=== PATIENT | female | born 1955 | race Caucasian/White ===

== ENCOUNTER 2020-10-22 10:35 | Day surgery (SDC) | payer MEDICARE, OTHER ==
[2020-10-20 15:37] VITALS: BMI 26.4
[~2020-10-22 10:35] MED LIST: ALPRAZolam 0.25 MG TAB PO PRN; ALPRAZolam 0.5 MG TAB PO PRN; ASPIRIN 325 MG TAB PO STA; ATORVASTATIN 80 MG TAB PO STA; HEPARIN SODIUM,PORCINE 10,000 UNIT in SODIUM CHLORIDE 0.9% 1,000 ML IRRIGATION PRN; HEPARIN SODIUM,PORCINE 2,500 UNIT in SODIUM CHLORIDE 0.9% 250 ML IRRIGATION PRN; NITROGLYCERIN SL TABS 0.4 MG TAB SUBLINGUAL PRN; SODIUM CHLORIDE 0.9% 1,000 ML in EMPTY BAG 1 BAG IV ONE
[2020-10-22 11:28] VITALS: RESP 16; TEMP 98.2
[2020-10-22 11:34] LABS: Basophils # (A) 0.1 k/uL (0-0.2); Basophils % (A) 1 %; Eosinophils # (A) 0.3 k/uL (0-0.7); Eosinophils % (A) 4 %; HCT 41.3 % (34.0-46.0); HGB 13.4 gm/dL (11.4-16.0); Lymphocytes % (A) 13 %; MCH 26.3 pg (25.0-35.0); MCHC 32.4 g/dL (31.0-37.0); MCV 81.4 fL (80.0-100.0); Mean Platelet Volume 6.3; Monocytes # (A) 0.4 k/uL (0-1.0); Monocytes % (A) 5 %; Neutrophils # (A) 5.5 k/uL (1.3-7.7); Neutrophils % (A) 75 %; Platelet Count 349 k/uL (150-450); RBC 5.08 m/uL (3.80-5.40); RDW 14.7 % (11.5-15.5); WBC 7.3 k/uL (3.8-10.6)
[2020-10-22 11:50] LABS: African American GFR (CKD) >90 (>60 ml/min/1.73 sqM); Anion Gap 5 mmol/L; Blood Urea Nitrogen 13 mg/dL (7-17); Calcium 9.9 mg/dL (8.4-10.2); Carbon Dioxide 29 mmol/L (22-30); Chloride 103 mmol/L (98-107); Glucose 109 mg/dL (74-99); Non-African American GFR(CKD) >90 (>60 ml/min/1.73 sqM); Sodium 137 mmol/L (137-145)
[2020-10-22 11:52] LABS: Potassium 4.5 mmol/L (3.5-5.1)
[2020-10-22] MEDS ORDERED: fentaNYL (PF) 50 MCG/ML 2 ML AMP IV ONE (12:34)
[2020-10-22] MEDS ORDERED: MIDAZOLAM 2 MG/2 ML VIAL IV ONE (12:35)
[2020-10-22] MEDS ORDERED: LIDOCAINE 1% INJ 10MG/ML (20 ML MDV) SQ ONE (12:36)
[2020-10-22] MEDS ORDERED: VERAPAMIL SYRINGE (5 MG/10 ML) INTRAARTER ONE (12:37)
[2020-10-22] MEDS ORDERED: HEPARIN SODIUM 1,000 UN/ML (10ML VL) IV ONE (12:42)
[2020-10-22] MEDS ORDERED: IOPAMIDOL-370 125ML BTL INJ ONE (12:53)
[2020-10-22] MEDS ORDERED: RX INFO: IV CONTRAST WAS GIVEN 1 EACH MISC MISCELLANE PRN (13:02)
[2020-10-22] MEDS ORDERED: SODIUM CHLORIDE 0.9% 1,000 ML IV SCH (13:15)
[2020-10-22 14:45] VITALS: BP 122/64; PULSE 60
--- NOTE | 2020-10-22 15:41 | CC ---
CARDIAC CATHETERIZATION REPORT Mrs. Iyer is a 64-year-old male with known prior history of chronic tobacco use, history of hyperlipidemia, who presented with symptoms of progressive chest discomfort, underwent a stress echocardiogram that was reported showing antral wall ischemia. In view of that, recommendation was made regarding cardiac catheterization. The procedure as well as the risks and the complications were discussed with the patient who is in full understanding and agreement. 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 Using Xylocaine anesthesia and Seldinger technique, a 6-Micronesian sheath was introduced in the right radial artery. Selective right and left coronary angiography performed using 5-Micronesian 3.5 bend, right and left Carole catheter. Multiple views of the coronary artery including hemiaxial views obtained. Following that, a 5-Micronesian tight pigtail catheter was introduced into the left ventricle and pressures were calculated. Following that, catheter and sheath were removed. Hemostasis was obtained with deployment of a TR band. There was no immediate complication. Patient is returned to her room in stable condition. Of note, the patient received 3500 units of intravenous heparin as well as intra-arterial verapamil. FINDINGS: LEFT MAIN: This is a short size vessel, bifurcating into left circumflex, left anterior descending coronary artery, left main coronary artery has no evidence of high-grade stenosis. LEFT ANTERIOR DESCENDING ARTERY: This is a large-sized vessel reaching toward the apex with a wraparound the apex segment giving rise to a small diagonal branch. The left anterior descending artery as well as branches have no evidence of obstructive coronary artery disease. LEFT CIRCUMFLEX: This is a codominant vessel, large in caliber, giving rise to 2 obtuse marginal branches and distally bifurcating PDA and posterolateral segment and branches. The left circumflex as well as branches have no evidence of obstructive coronary artery disease. RIGHT CORONARY ARTERY: This is a codominant vessel, moderate in caliber, bifurcating distally into PDA and posterolateral segment and branches. The right coronary artery as well as branches have no evidence of obstructive coronary artery disease. LEFT VENTRICULOGRAM: Left ventriculogram was not performed. HEMODYNAMICS: There was no gradient across the aortic valve. The left ventricular end-diastolic pressure was 10-14 mmHg. CONCLUSION: 1. Normal coronary arteries. 2. Codominant system. RECOMMENDATIONS: In view of findings and anatomy, I recommend continued medical therapy with aggressive coronary risk modifications that have been initiated. Those findings and recommendations were discussed with the patient and her family and they are in full understanding and agreement. GIANFRANCO / ADDIE: [id number] /
--- NOTE | 2020-10-22 15:49 | LTR ---
DATE OF SERVICE: 10/22/[address] Lu: I had the pleasure of performing cardiac catheterization on Mrs. Shireen singer at [facility] on October 22 and a full copy of procedure note will be forwarded to you. In brief, she was found to have no evidence of obstructive coronary artery disease. Based on those findings, I recommend continued medical therapy with aggressive coronary risk modifications that have been initiated. Thank you again for allowing me to participate in his care. Please feel free to call for any questions. Sincerely, GIANFRANCO / IJN: [id number] /
[2020-10-22] MEDS ORDERED: NON FORMULARY DRUG (Omeprazole [Omeprazole] 20 MG Capsule.Dr) PO SCH (21:00)
[2020-10-22] MEDS ORDERED: ATENOLOL 100 MG PO SCH (21:00)
[2020-10-23] MEDS ORDERED: NON FORMULARY DRUG (Aspirin [Adult Low Dose Aspirin Ec] 81 MG Tablet.Dr) PO SCH (09:00)
[2020-10-23] MEDS ORDERED: LEVOTHYROXINE 100 MCG TAB PO SCH (09:00)
== END 2020-10-22 17:06 | disposition home or self-care (01) ==
LOC: CATHCVL 10:35
PROVIDERS: ATTEND Internal Medicine Interventional Cardiology
DX: R07.89 Other chest pain (principal); R94.39 Abnormal result of other cardiovascular function study; R00.2 Palpitations; E78.2 Mixed hyperlipidemia; E78.00 Pure hypercholesterolemia, unspecified; Z87.891 Personal history of nicotine dependence; Z20.822 Contact with and (suspected) exposure to COVID-19; Z82.49 Family history of ischemic heart disease and other diseases of the circulatory system; Z79.1 Long term (current) use of non-steroidal anti-inflammatories (NSAID); Z79.82 Long term (current) use of aspirin; Z79.890 Hormone replacement therapy; Z79.899 Other long term (current) drug therapy; Z88.1 Allergy status to other antibiotic agents; Z88.5 Allergy status to narcotic agent
CPT/HCPCS: 93458; 80048; 85025; 87635; C1894; J2250; J2001; J3010; J1644; Q9967